=== PATIENT | female | born 1990 | race Caucasian/White ===

== ENCOUNTER 2018-06-20 12:02 | Emergency (ER) | payer OTHER, SELFPAY ==
[2018-06-20 12:03] VITALS: BP 128/78; PULSE 70; RESP 16; TEMP 36.5; O2SAT 100; BMI 24.3
[2018-06-20 12:45] VITALS: BP 116/81; PULSE 75; RESP 14; O2SAT 99
--- NOTE | 2018-06-20 12:45 | RAD_ITS ---
STUDY: X-RAY CHEST REASON FOR EXAM: Female, 28 years old. Chest pain with onset Sunday radiating to the back and left arm. TECHNIQUE: Portable AP upright chest COMPARISON: None. FINDINGS: The lungs are clear and expanded. Normal cardiomediastinal silhouette, edward and pleural margins. No acute osseous or upper abdominal process. RAD/Chest 1 View (Portable) IMPRESSION: No acute cardiopulmonary process. Electronically Signed: Ck Barajas MD at 13:42 EST Tel , Service support ,
--- NOTE | 2018-06-20 12:47 | EKG12_ITS ---
Test Reason : CP Blood Pressure : / mmHG Vent. Rate : 067 BPM Atrial Rate : 067 BPM P-R Int : 128 ms QRS Dur : 080 ms QT Int : 382 ms P-R-T Axes : 071 067 069 degrees QTc Int : 403 ms Normal sinus rhythm Low voltage QRS Borderline ECG Confirmed by JUAQUIN GAR, CHLOE ([id number]), index editor KELLIE SILVEIRA ([id number]) on 06/25/2018 9:09:59 AM Referred By: DAGMAR/SILVIA Confirmed By:CHLOE REZA MD
[2018-06-20 12:48] VITALS: O2SAT 100
[2018-06-20] MEDS: 0.9% Normal Saline 1,000 ML 1000 ML IV (12:58)
[2018-06-20] MEDS: Mag Hydrox/Al Hydrox/Simeth 30 ML UDC PO (12:58)
[2018-06-20 13:01] LABS: Absolute Lymphocyte Count 1.12 X10^3/ul (0.83-4.51); Absolute Neutrophil Count 4.3 X10^3/uL (2.0-7.7); Basophil# 0.03 X10^3/uL; Basophil% 0.5 % (0-1); Eosinophil# 0.03 X10^3/uL; Eosinophils% 0.5 % (0-5); Hematocrit 40.3 % (37-47); Hemoglobin 12.9 g/dl (12.0-15.0); Lymphocyte # 1.12 X10^3/ul (4.0); Mean Corpuscular Hgb 28.9 pg (27.0-32.0); Mean Corpuscular Volume 90.4 fL (81-99); Mean Platelet Vol. 11.8 fl (6.2-12.0); Monocyte% 6.8 % (0-10); Neutrophil % 73.2 % (47-70); POSITIVE COUNT NO; POSITIVE DIFFERENTIAL NO; POSITIVE MORPHOLOGY NO; Platelet Count 226 K/mm3 (150-450); RBC Distribution Width CV 11.9 % (11.6-14.6); RBC Distribution Width SD 39.2 fl (35.1-43.9); Red Blood Count 4.46 M/mm3 (4.2-5.4); White Blood Count 5.9 K/mm3 (4.4-11.0)
[2018-06-20 13:12] LABS: Anion Gap 7 (5-15); BUN 10 mg/dL (7-18); BUN/Creat Ratio 13.2 RATIO (10-20); Calcium,Total 8.9 mg/dL (8.5-10.1); Chloride 109 mmol/L (98-107); Creatinine, Serum 0.76 mg/dL (0.55-1.02); EST Glomerular Filtration Rate 95 mL/min (>60); Est Glom Filt Rate - Afr Amer 115 mL/min (>60); Estimated Creatinine Clearance 89.54 ml/min; Glucose 101 mg/dL (74-106); Potassium 3.9 mmol/L (3.5-5.1); Sodium Level 140 mmol/L (136-145)
[2018-06-20 13:19] LABS: Pregnancy, Serum, hCG Quali. NEGATIVE Negative (0-9 Nonpreg)
[2018-06-20 13:20] VITALS: PULSE 64; RESP 14; O2SAT 100
--- NOTE | 2018-06-20 13:30 | ED.DCSUM_ITS ---
- ER Visit Summary Date of Service: 06/20/18 Chief Complaint: Chest pain History of Present Illness: The patient is a [address] Medellin. She reports that she has chest pain began 5 days ago. States that it is an intermittent pain last an hour at a time. She describes it as dull and burning. 7-10 worsened through 10 currently. Is worsened by nothing including exertion, breathing, or movement. States it was partially relieved by the chiropractor. She denies any nausea, vomiting, diaphoresis, or shortness of breath. Patient reports that the same time is that she had the onset of a mid back pain as well. She got a massage and this was worse. She went to the chiropractor twice and has not had relief from that. She denies any recent trauma. No fall, MVA, or change in activity. Patient denies any problems with her bowels or bladder. No numbness or weakness in her legs. No groin numbness. No radiation of the pain into her legs. Physical Examination: Vitals: Stable. Afebrile. General: Well-nourished and well-developed. Head: Normocephalic atraumatic. Neck: Supple, no lymphadenopathy. No JVD. Nontender. Cardiovascular: Regular rate and rhythm. No murmurs. Respiratory: No respiratory distress. Clear to auscultation bilaterally. Abdominal: Soft, nontender, nondistended, normal bowel sounds. No guarding, rebound, or peritoneal signs. Back: Mild tenderness palpation of the paraspinous muscular just to the left of the lower thoracic spine. No vertebral tenderness. Extremities: Nontender, no edema. Skin: Normal color, no rash. Neurologic: Alert and oriented ?3. Cranial nerves II through XII are intact. Normal strength and sensation. Psych: Normal affect. Test Results: EKG is sinus at 67 with no acute changes. Troponin is negative. test negative. Chem-7 shows a chloride of 109. CBC shows segmented neutrophils 73. Chest x-ray is normal. Emergency Department Course and Treatment: Patient was treated with a GI cocktail without relief. She is resting comfortably. Treatment Plan: Patient be discharged Zantac. I suggested that she use Tylenol and warm soaks for her back. Follow-up her primary care physician 1 week if not improving. Return to the emergency department for any worsening symptoms. Disposition: To home in [facility] and stable condition. Impression: 1. Atypical chest pain. 2. BEKAH score of 0. 3. Musculoskeletal back pain. This note was generated with [employer] dictation software. It may contain incorrect words, spelling, and punctuation that were not noted in review of the chart prior to signing ED Disposition - Plan for ED Patient: Disposition: Home or Assisted Living Instructions: ED Chest Pain Atypical Unkn Cause Prescriptions: Ranitidine [Zantac] 300 mg PO DAILY #30 tablet Referrals: Doctor,Your [STAFF PHYSICIAN] - 3-5 Days if not improving
[2018-06-20 14:13] VITALS: BP 101/69; PULSE 83; RESP 18; O2SAT 99
== END 2018-06-20 14:30 | disposition home or self-care (01) ==
LOC: ED 14:27
PROVIDERS: Emergency Provider Emergency Medicine; Family Provider Family Medicine; PCP Family Medicine
DX: R07.89 Other chest pain (principal); M54.9 Dorsalgia, unspecified
CPT/HCPCS: 71045; 80048; 84484; 84703; 85025; 93005; 96360; 99285; J7030; A4216